=== PATIENT | male | born 1965 | race Caucasian/White ===

== ENCOUNTER 2022-09-06 07:00 | Outpatient (CLI) | payer OTHER, SELFPAY ==
--- NOTE | 2022-09-06 07:15 | MR_ITS ---
[address] [address] Phone:?[phone] Fax:?[phone] Referring Physician Information: Colton Underwood [address] [facility] [address] Phone:?[phone] Fax:?[phone] Patient:?Riaz Leon D.O.B:?1965 Sex:?Male Phone:?[phone] [facility] MRN:?[id number] Exam Date:?09/06/2022 ? EXAM: MRI OF THE LEFT SHOULDER CLINICAL INFORMATION: The patient is a 56-year-old with left shoulder pain. Evaluate for rotator cuff tear. PRIOR SURGERY: None reported. COMPARISON STUDIES: Comparison is made to prior radiographs dated 08/27/2022. TECHNICAL INFORMATION: Using a 1.5T MR scanner and a localizing shoulder surface coil: 3.0 mm?coronal obliques: PD, T2, STIR 3.0 mm?sagittal obliques: PD, T2 3.0 mm?axials: PD, T2 FINDINGS: Articular/Extraarticular collections: Effusion: Mild to moderate. Subacromial/subdeltoid: Moderate fluid is seen within the subacromial/subdeltoid bursa, in keeping with changes of bursitis. Subcoracoid: Moderate fluid is seen within the subcoracoid bursa with low signal intensity debris. The findings are in keeping with bursitis. Osseous structures: Proximal humerus: No evidence for bony injury to the proximal humerus can be seen. There is no evidence for greater tuberosity fracture. No Hill-Sachs or reverse Hill-Sachs deformity is seen. Glenoid: No acute bony abnormality of the glenoid fossa or glenoid neck can be seen. Acromioclavicular joint: Moderate changes of acromioclavicular joint arthrosis are present and can be seen on coronal series 4 image 10 and on sagittal series 8 image 15. Coracoacromial arch: Acromion morphology: Type II. No evidence for os acromiale. Acromiohumeral space: Mildly narrowed. Coracohumeral space: Mildly narrowed. Rotator cuff and deltoid: Supraspinatus: Moderate changes of supraspinatus tendinosis can be seen with intrasubstance splitting of the supraspinatus tendon fibers. No full-thickness tearing or retraction is seen. No atrophic changes of the supraspinatus muscle belly are present. Infraspinatus: Moderate infraspinatus tendinosis can be seen. There is no evidence for full or partial-thickness tearing. No atrophic changes of the infraspinatus muscle belly are identified. Teres minor: No evidence for tendinosis, tearing, or associated muscle belly atrophy. Subscapularis: Moderate subscapularis tendinosis can be seen. There is superimposed full-thickness tearing of the subscapularis tendon fibers, seen to best advantage on axial series 3 image 49 and on sagittal series 8 image 11. The area of full-thickness tearing measures 25 mm in mediolateral dimension and 23 mm in craniocaudal dimension. No atrophic changes of the subscapularis muscle belly are noted. Deltoid: No evidence for strain or tearing. Biceps tendon: Mild tendinosis and flattening of the long head of the biceps can be seen. There is no evidence for biceps rupture. No dislocation or subluxation is identified. Glenohumeral joint and labrum: Articular Cartilage: No chondral injuries along the articular surfaces of the glenohumeral articulation can be seen. No osteoarthritic changes are identified. Labrum: Degeneration, blunting, and irregularity of the glenoid labrum can be seen without definite areas of more well-defined tearing. No paralabral ganglion cyst formation is present. Capsular Soft Tissues: No definite capsular abnormalities of the glenohumeral joint are seen. No evidence for capsular tearing is present and there are no MR signs of adhesive capsulitis. CONCLUSION: 1. Moderate supraspinatus, infraspinatus, and subscapularis tendinosis. There is full-thickness tearing of the subscapularis tendon fibers as described above. 2. Glenohumeral joint effusion with subacromial/subdeltoid and subcoracoid bursitis. 3. Moderate acromioclavicular joint arthrosis with mild narrowing of the acromiohumeral space. 4. Mild tendinosis and flattening of the long head of the biceps. 5. Degeneration, blunting, and irregularity of the glenoid labrum without definite areas of more well-defined tearing. 6. No chondral injuries along the articular surfaces of the glenohumeral articulation are present. [facility] Electronically signed on 09/07/2022 6:42:00 AM by Melvin Doherty M.D.
== END 2022-09-06 07:01 | disposition home or self-care (01) ==
PROVIDERS: PCP Family Medicine; Visit Provider Physician Assistant Surgical
DX: M25.512 Pain in left shoulder (principal); S46.912A Strain of unspecified muscle, fascia and tendon at shoulder and upper arm level, left arm, initial encounter; M75.52 Bursitis of left shoulder; M25.412 Effusion, left shoulder; M19.012 Primary osteoarthritis, left shoulder
CPT/HCPCS: 73221

== ENCOUNTER 2022-09-26 08:51 | Day surgery (SDC) | payer OTHER, SELFPAY ==
[2022-09-26] VITALS (16 sets, daily range): BP systolic 102–148; BP diastolic 55–81; PULSE 65–77; RESP 16–22; TEMP 36.1–36.8; O2SAT 94–99; BMI 26.4
[2022-09-26] MEDS: LACTATED RINGERS 1000 ML 1,000 ML 100 ML IV ×2 (08:55→12:28)
--- NOTE | 2022-09-26 09:15 | SUR.PREOP ---
Patient provided home covid negative results to RN.
[2022-09-26] MEDS: SODIUM CHLORIDE 0.9 % (FLUSH) 10 ML SYRINGE IVF (09:17)
[2022-09-26] MEDS: MIDAZOLAM HCL 1 MG/ML inj IVP (09:23)
[2022-09-26] MEDS: fentaNYL 100 MCG/2 ML inj IVP (09:23)
--- NOTE | 2022-09-26 09:25 | SUR.PREOP ---
TIME?OUT:?921 PT/BHAVESH Heard/JEM Sanchez?VERIFICATION?OF?SURGICAL?SITEleftshoulder,?PROCEDURE,?AND?CONSENT OBTAINED?PRIOR?TO?INVASIVE?PROCEDURE.
--- NOTE | 2022-09-26 09:35 | W.ANESCHARGE ---
Anesthesia Charges Start Date/Time Anesthesia Start Date: 09/26/22 Anesthesia Start Time: 10:03 Stop Date/Time Anesthesia Stop Date: 09/26/22 Anesthesia Stop Time: 12:21
--- NOTE | 2022-09-26 09:35 | W.PM.NB ---
Nerve Block Nerve Block Time Seen by Provider: 09:25 Date Seen: 09/26/22 Type of block requested by surgeon for post-operative analgesia: supraclavicular Side: left Time out performed: Yes Verification of patient name: Yes Verification of date of : Yes Site marking: site marked Name of person performing procedure: Matthew Continuous monitoring Was continuous monitoring of O2 sat, B/P, campus monitor, recorded every 15 minutes?: Yes Procedure Checklist: sterile prep, needles and gloves Ultrasound guided. Images saved: Yes Medications given in 5ml increments after negative aspiration: Ropivicaine %: 0.5 mL: 20 Needle gauge: 22 Decadron (mg): 10 Precedex (mcg): 25 Patient tolerated procedure well: Yes Block Charges Block Charge (with Pro Fee): Brachial Plexus Use of Ultrasound Machine for Block: Yes- US Guidance/pain block
[2022-09-26] MEDS: EPINEPHrine 1 MG in SODIUM CHLORIDE IRRIG SOLUTION 3,000 ML 9003 MG IRRIGATION ×4 (10:10→10:35)
--- NOTE | 2022-09-26 11:06 | W.ANESCHARGE ---
Anesthesia Charges Start Date/Time Anesthesia Start Date: 09/26/22 Anesthesia Start Time: 10:03 Stop Date/Time Anesthesia Stop Date: 09/26/22 Anesthesia Stop Time: 12:21
--- NOTE | 2022-09-26 11:56 | P.ORPRC_ITS ---
Procedure Note Date of procedure: 09/26/22 Procedure: PREOPERATIVE DIAGNOSES: 1. Left shoulder rotator cuff tear. 2. Left shoulder AC degenerative disease, primary, moderate-severe 3. Left shoulder subacromial impingement syndrome. POSTOPERATIVE DIAGNOSES: 1. Left shoulder rotator cuff tear - subscapularis full-thickness broad width 2. Left shoulder AC degenerative joint disease, primary, moderate-severe 3. Left shoulder anterior labral tearing 4. Left shoulder subacromial impingement syndrome. NAME OF OPERATION: 1. Left shoulder arthroscopic rotator cuff repair. 2. Left shoulder arthroscopic distal clavicle excision 3. Left shoulder arthroscopic limited glenohumeral debridement 4. Left shoulder arthroscopic bursectomy, subacromial decompression/partial acromioplasty. SURGEON: Ashvin Hanna MD ONLINE ADVERTISING MANAGER: Robert Kidd. Of note, a skilled medical claims assistant was lanie chatman for this case to aide in patient positioning, suture manipulation, arm positioning, instrument positioning, and closure. ANESTHESIA: General plus preoperative supraclavicular block. EBL: Less than 25 mL IMPLANTS: Arthrex 4.75 mm BioComposite SwiveLock suture anchor (x2) COMPLICATIONS: None evident INDICATIONS: The patient is a pleasant, 56-year-old male who has experienced left shoulder pain that has been increasing in recent time. Physical exam and imaging were consistent with a rotator cuff tear of the subscapularis. Given their findings, as well as the weakness and pain, and inadequate response to nonoperative management, recommendation was made for surgery. FINDINGS: Exam under anesthesia revealed stable shoulder with excellent range of motion. The diagnostic arthroscopy revealed relatively healthy chondral surfaces of the glenohumeral joint. The Subscapularis tendon was torn full- thickness and wide breath with retraction that was moderate near the level of the glenoid. The long head of the biceps tendon was intact and within the bicipital groove, remarkably. The superior rotator cuff tendon was found to be torn in a high-grade partial-thickness manner the anterior portion supraspinatus. The labrum was degeneratively frayed in the anterior and superior aspects. No loose bodies were identified within the pouch or subsca pularis recess. PROCEDURE: Following a thorough discussion of risks, benefits, and alternatives, consent was obtained and the left shoulder was marked. The patient was brought to the operating room and placed supine on the operating table. Induction of anesthesia was completed after preoperative supraclavicular block was administered in preop holding. Appropriate time out was performed identifying proper patient, site, and procedure. 2 g IV Ancef was administered within 1 hour of incision preoperatively. The left upper extremity was prepped and draped in the appropriate sterile fashion using ChloraPrep prep. This was after the patient was positioned in the beach chair with their head in neutral alignment and all bony prominences well padded. The shoulder was insufflated with 20mL of normal saline via an 18g spinal needle from a posterior approach. An 11 blade skin incision allowed a blunt trochar to be inserted and diagnostic arthroscopy to be performed with the findings as noted above. An anterior portal was established with an outside in technique. This allowed the probe to be inserted and confirm the diagnostic arthroscopic findings. The shaver was then inserted and allowed debridement of the anterior and superior labrum. Following this, the upper border subscapularis was repaired after debriding the lesser tuberosity with the shaver and [place] cautery. Sub scapularis was captured in horizontal mattress fashion with a fiber tape suture twice. The inferior tails were brought to inferior anchor that was utilized with a 2nd portal, and the superior tails were brought to superior anchor of the lesser tuberosity with excellent reapproximation of the rotator cuff/subscapularis to the lesser tuberosity. Thereafter, the subacromial space was entered. Here, a complete bursectomy and partial acromioplasty/subacromial decompression was performed with a combination of radiofrequency ablator, the shaver, and a 5.5 mm bur. Additionally, distal clavicle excision was performed with the bur. 8 mm of distal clavicle was resected based on the width of our bur. Further inspection of the supraspinatus and infraspinatus rotator cuff was performed. This identified a high-grade partial-thickness tear of the supraspinatus in the far anterior aspect. The remaining supraspinatus and infraspinatus was intact and healthy. We did perform a marginal convergence suture of this longitudinal split high-grade partial-thickness tear with excellent reapproximation of the rotator cuff/supraspinatus tissue. The shoulder was placed through range of motion and found to be stable. The rotator cuff was re-probed and found to be stable. Instruments were removed. Excess fluid was drained, closure performed with 4-0 Monocryl and Steri-Strips. Dressings were applied. Sling was applied. The patient was awoken from anesthesia and transferred to the PACU in stable condition. A skilled medical claims assistant was critical for this case to aid in patient positioning, limb positioning, skill to manipulate arthroscopic instruments and camera, suture management, patient safety, and closure. PLAN: 1. Elbow, forearm, wrist and digit range of motion of operative extremity as tolerated. 2. Encouraged ice. 3. Percocet for pain as needed. 4. Sling at all times except for ROM and showering. 5. Follow up with PA visit in 1-2 weeks for wound check. Initiate physical therapy following that visit for passive range of motion. Initiate active assisted range of motion at 3-4 weeks. May do pendulums now.
--- NOTE | 2022-09-26 12:59 | SUR.PHASEI ---
Pt brought his own cryocuff and sling so should not be charged for any
== END 2022-09-26 14:39 | disposition home or self-care (01) ==
PROVIDERS: PCP Family Medicine; Visit Provider Orthopaedic Surgery Sports Medicine
PROC: (CPT 29805; principal; 2022-09-26 10:15)
DX: M75.122 Complete rotator cuff tear or rupture of left shoulder, not specified as traumatic (principal); M19.012 Primary osteoarthritis, left shoulder; M75.42 Impingement syndrome of left shoulder; S43.432A Superior glenoid labrum lesion of left shoulder, initial encounter
CPT/HCPCS: 29827; 29826; 29822; 29824; 01630; 64415; 76942; C1713; J0171; J0330; J1100; J2250; J2405; J2704; J2795; J3010; J7120

== ENCOUNTER 2023-01-08 13:00 | Outpatient (RCR) | payer OTHER, SELFPAY | END 2023-02-15 15:25 | disposition home or self-care (01) | PROVIDERS: PCP Family Medicine; Visit Provider Orthopaedic Surgery Sports Medicine | DX: M75.122 Complete rotator cuff tear or rupture of left shoulder, not specified as traumatic (principal); M75.42 Impingement syndrome of left shoulder; M19.019 Primary osteoarthritis, unspecified shoulder; Z51.89 Encounter for other specified aftercare | CPT/HCPCS: 97110; 97140; 97161 ==

== ENCOUNTER 2023-03-17 02:26 | Emergency (ER) | payer OTHER, SELFPAY ==
[2023-03-17 02:56] VITALS: BP 163/83; PULSE 60; RESP 16; TEMP 37.1; O2SAT 96; BMI 26.6
--- NOTE | 2023-03-17 03:27 | ED.GENADULT ---
HPI - General Adult General Chief complaint: Abdominal Pain Stated complaint: lower back pain Time Seen by Provider: 03/17/23 02:32 History of Present Illness HPI narrative: Pt aox4, ABCs intact. Patient c/o right flank pain that goes into his lower abdomen that started around 0100 this morning. Patient denies any urinary symptoms. No hx of abdominal surgeries. Pt also having mild nausea. sitting forward and bending at the waist improves the pain. Patient took Tylenol at 0100 57-year-old man presenting to the emergency department with complaint of right flank area pain that seems to be radiating down into the right side low abdomen to his groin beginning about 2 hours prior to arrival in the emergency department. Normal bowel movements. Is mildly nauseated. Seems to feel a bit better when he bends forward. No significant back issues. No dysuria frequency urgency. No hematuria. Review of records does show a history of an ascending aortic aneurysm. History of AVR. No personal or family history of kidney stones. Related Data Home Medications Medication Instructions Recorded Confirmed atorvastatin 40 mg tablet 40 mg PO QDAY 08/27/22 03/17/23 bupropion HCl 150 mg 24 hr tablet, 150 mg PO 08/27/22 12/18/22 extended release sertraline 100 mg tablet 100 mg PO QDAY 08/27/22 03/17/23 amlodipine 5 mg tablet 5 mg PO QDAY 08/29/22 03/17/23 aspirin 81 mg tablet,delayed 81 mg PO QDAY 08/29/22 03/17/23 release rosuvastatin 20 mg tablet 20 mg PO QDAY 08/29/22 03/17/23 acetaminophen 500 mg capsule 1,000 mg PO Q6H PRN 09/25/22 03/17/23 loratadine 10 mg tablet (Claritin) 10 mg PO DAILY 09/25/22 03/17/23 omeprazole 20 mg capsule,delayed 20 mg PO DAILY 09/25/22 03/17/23 release Previous Rx's Medication Instructions Recorded tamsulosin 0.4 mg capsule (Flomax) 0.4 mg PO DAILY #15 caps 03/17/23 Allergies Allergy/AdvReac Type Severity Reaction Status Date / Time adhesive Allergy Rash, open Verified 03/17/23 02:56 sores Penicillins Allergy Rash Verified 03/17/23 02:56 Beta-Blockers AdvReac Verified 03/17/23 02:56 (Beta-Adrenergic Bloc Review of Systems Status of ROS: Reports: 6 or more systems reviewed and unremarkable except as noted in History and below [facility] Medical History (Updated 03/17/23 @ 06:55 by Desmond Chou MD) Thrombocytopenia ?D69.6 - Thrombocytopenia, unspecified (ICD-10) Ascending aortic aneurysm ?I71.21 - Aneurysm of the ascending aorta, without rupture (ICD-10) Depression with anxiety ?F41.8 - Other specified anxiety disorders (ICD-10) Esophageal reflux ?K21.9 - Gastro-esophageal reflux disease without esophagitis (ICD-10) Surgical History Status post arthroscopy of left shoulder (09/26/22) ?Z98.890 - Other specified postprocedural states (ICD-10) H/O aortic valve replacement ?Z95.2 - Presence of prosthetic heart valve (ICD-10) History of arthroscopy of right shoulder (09/08/18) ?Z98.890 - Other specified postprocedural states (ICD-10) Social History Smoking Status: Never smoker How often do you have a drink containing alcohol: never AUDIT-C Alcohol total score: 0 Non-prescribed substance use: denies use Caffeine: Yes (1cupcoffee) Exam Narrative: Exam Narrative: A pleasant. NAD but does seem rather uncomfortable. Skin is warm and dry. Lower extremities are without edema. Extremities are well perfused. Lungs are clear. Not really able to reproduce pain to percussion of the flanks. Abdomen is soft maybe a little uncomfortable to palpation in the right abdomen but not clearly reproducible and not consistent with appendicitis/Carlito's. Heart is in a regular rate and rhythm with 2/6 systolic murmur Const: Vital Signs, click to edit/add: Vital Signs - 24 hr 03/17/23 02:56 Temperature 98.7 F Pulse Rate [Pulse Oximeter] 60 Respiratory Rate 16 Blood Pressure [Ri ght Upper Arm] 163/83 H Pulse Oximetry 96 Oxygen Delivery Me thod Room Air Documenting provider has reviewed patient's vital signs: yes Course Vital Signs Vital signs: Initial Vital Signs Temperature 98.7 F 03/17/23 02:56 Temperature Source Temporal Artery Scan 03/17/23 02:56 Pulse Rate 60 03/17/23 02:56 Respiratory Rate 16 03/17/23 02:56 Blood Pressure 163/83 H 03/17/23 02:56 Blood Pressure Mean 109 H 03/17/23 02:56 Pulse Oximetry 96 03/17/23 02:56 Oxygen Delivery Method Room Air 03/17/23 02:56 Vital Signs Temperature 98.7 F 03/17/23 02:56 Pulse Rate 60 03/17/23 02:56 Respiratory Rate 16 03/17/23 02:56 Blood Pressure 163/83 H 03/17/23 02:56 Pulse Oximetry 96 03/17/23 02:56 Oxygen Delivery Method Room Air 03/17/23 02:56 Temperature 98.7 F 03/17/23 02:56 Pulse Rate 60 03/17/23 02:56 Respiratory Rate 16 03/17/23 02:56 Blood Pressure 163/83 H 03/17/23 02:56 Pulse Oximetry 96 03/17/23 02:56 Oxygen Delivery Method Room Air 03/17/23 02:56 Medical Decision Making MDM Narrative Medical decision making narrative: Differential includes vascular dissection, mesenteric adenitis, urinary tract infection, ureteral stone and colic. Does not appear to be constipated your demonstrating any enteritis picture or colitis picture. Not reproducible in the way that one would think that there is a back/musculoskeletal concerned. Gallbladder disease perhaps but absent Burr's. Appendicitis also in differential but less likely. Given his description of location of pain and course through the abdomen I would suspect ureteral stone and colic is leading in considerations. IV will be established. Given normal saline IV hydration, ketorolac and morphine and Zofran. Pending labs but would anticipate CT scan Overall improved with treatments as above. CT abdomen pelvis by my read confirming a large stone at the ureteropelvic junction. FINDINGS: LUNG BASES: The lung bases as visualized appear normal.Sternotomy and valve repair. LIVER/BILIARY SYSTEM:The liver is normal in size and configuration. There is no focal mass and there is no intra- or extra hepatic biliary ductal dilatation.Steatosis. Normal appearing gallbladder ADRENALS: Normal KIDNEYS, URETERS and BLADDER:No definite intrarenal calculi. A few tiny low-density lesions are noted that are too small to characterize but likely cysts. Significant right-sided obstructive uropathy. This is due to a 6.5 millimeter calculus at the right ureteropelvic junction SPLEEN:The bladder appears normal PANCREAS: Appears normal. RETROPERITONEUM and MESENTERY: There is no mass, adenopathy or aortic aneurysm. GASTROINTESTINAL SYSTEM: There is no evidence of diverticulitis, colitis, mechanical obstruction, or appendicitis. The small bowel as visualized appears normal.Scattered diverticulosis PELVIS: No mass, adenopathy or free fluid. OSSEOUS STRUCTURES and ABDOMINAL WALL: There is an age-appropriate appearance of the osseous structures.No significant abdominal wall defect. OTHER: No free fluid or free air. IMPRESSION: Right-sided obstructive uropathy due to a 6.5 millimeter calcified calculus at the right ureteropelvic junction. No intrarenal calculi identified. Given size of stone and location I did discuss with [facility] for follow-up/more urgent intervention. Spoke with Dr. Haddad. We have managed to control Mr. Leon's pain. I would anticipate intervention in the next few days. See patient discharge plan Medical Records Medical records reviewed: Yes I reviewed the patient's medical records Lab Data Lab results reviewed: Yes I reviewed the patient's lab results Labs: Lab Results 03/17/23 Range/Units 03:40 WBC 6.05 (4.50-11.00) K/uL RBC 4.92 (4.30-5.90) m/uL Hgb 14.9 (13.5-17.5) gm/dL Hct 45.5 (37.0-53.0) % MCV 93 (80-100) fL MCH 30 (26-34) pg MCHC 33 (32-36) gm/dL RDW Coeff of Audrey 12.7 (11.5-15.5) % Plt Count 192 (140-440) K/uL Neut % (Auto) 77.0 H (42.0-72.0) % Lymph % (Auto) 13.2 L (20-44) % Larimer % (Auto) 7.4 (0.0-11.0) % Eos % (Auto) 1.7 (0.0-7.0) % Baso % (Auto) 0.5 (0.0-3.0) % Neut # (Auto) 4.70 (1.7-7.0) K/uL Lymph # (Auto) 0.80 L (0.90-2.90) K/uL [place] # (Auto) 0.40 (0.00-0.90) K/UL Eos # (Auto) 0.10 (0.00-0.50) K/uL Baso # (Auto) 0.03 (0.00-0.30) K/uL Abs Immat Gran (auto) 0.01 (0.00-0.30) K/uL Imm/Tot Granulo (auto) 0.2 % D-Dimer Quant (PE/DVT) 0.39 (0.00-0.50) ug/ml Sodium 141 (135-149) mmol/L Potassium 4.5 (3.6-5.1) mmol/L Chloride 106 (96-114) mmol/L Carbon Dioxide 28 (20-32) mmol/L Anion Gap 7 (7-15) mEq/L BUN 21 (7-30) mg/dL Creatinine 0.9 (0.5-1.5) mg/dL Estimated Creat Clear 85.50 Estimated GFR 98 ml/min Glucose 124 H (60-115) mg/dL Calcium 8.7 (8.4-10.6) mg/dL Total Bilirubin 0.8 (0.1-1.5) mg/dL Direct Bilirubin 0.0 (0.0-0.5) mg/dL AST 29 (12-35) U/L ALT 26 (4-50) U/L Alkaline Phosphatase 84 (40-150) U/L Total Protein 7.0 (6.0-8.3) g/dL Albumin 4.3 (3.3-5.0) g/dL Discharge Plan Discharge Clinical Impression: Obstructive uropathy, Right ureteral calculus Patient Disposition: Home w/ Parent or Adult Condition: Improved Additional Instructions: Focus on hydration generally. Tomorrow morning I would like you to call to [facility] phone number [phone] or [phone]; the latter is the office gas truck driver. Request to be seen by or BOB and that we spoke with Dr. Haddad today and are recommended for intervention for an obstructive uropathy, a proximal ureteral stone. [facility] and [facility] should have copies of the CT images that were done here today. Otherwise return/be seen for uncontrolled pain, fever, repeated vomiting. Consider straining your urine over this next week. Can take up to 800 mg of ibuprofen per dose for pain. Otherwise Percocet also prescribed from [facility]. Flomax prescribed which can help with spasm. Zofran for nausea from [facility]. Prescriptions: New tamsulosin [Flomax] 0.4 mg capsule 0.4 mg PO DAILY Qty: 15 0RF No Action bupropion HCl 150 mg tablet extended release 24 hr 150 mg PO atorvastatin 40 mg tablet 40 mg PO QDAY sertraline 100 mg tablet 100 mg PO QDAY aspirin 81 mg tablet,delayed release (DR/EC) 81 mg PO QDAY rosuvastatin 20 mg tablet 20 mg PO QDAY amlodipine 5 mg tablet 5 mg PO QDAY acetaminophen 500 mg capsule 1,000 mg PO Q6H PRN loratadine [Claritin] 10 mg tablet 10 mg PO DAILY omeprazole 20 mg capsule,delayed release(DR/EC) 20 mg PO DAILY Follow Up/Referrals: Aristeo Morton MD [Primary Care Provider] - Stand Alone Forms: [employer] Info Instructions
--- NOTE | 2023-03-17 03:31 | CRLHL7_ITS ---
For Patients: As a result of the Century Cures Act, medical imaging exams and procedure reports are released immediately into your electronic medical record. You may view this report before your referring provider. If you have questions, please contact your health care provider. INDICATION: Pain COMPARISON: None TECHNIQUE: CT examination of the abdomen and pelvis was performed following the uneventful intravenous administration of 83 cc of Isovue 370. Thin section axial images were obtained from the lung bases through the pubic symphysis. Oral contrast was not administered. Please note that all CT scans at this facility use dose modulation, iterative reconstruction, and/or weight-based dosing when appropriate to reduce radiation dose to as low as reasonably achievable. FINDINGS: LUNG BASES: The lung bases as visualized appear normal.Sternotomy and valve repair. LIVER/BILIARY SYSTEM:The liver is normal in size and configuration. There is no focal mass and there is no intra- or extra hepatic biliary ductal dilatation.Steatosis. Normal appearing gallbladder ADRENALS: Normal KIDNEYS, URETERS and BLADDER:No definite intrarenal calculi. A few tiny low-density lesions are noted that are too small to characterize but likely cysts. Significant right-sided obstructive uropathy. This is due to a 6.5 millimeter calculus at the right ureteropelvic junction SPLEEN:The bladder appears normal PANCREAS: Appears normal. RETROPERITONEUM and MESENTERY: There is no mass, adenopathy or aortic aneurysm. GASTROINTESTINAL SYSTEM: There is no evidence of diverticulitis, colitis, mechanical obstruction, or appendicitis. The small bowel as visualized appears normal.Scattered diverticulosis PELVIS: No mass, adenopathy or free fluid. OSSEOUS STRUCTURES and ABDOMINAL WALL: There is an age-appropriate appearance of the osseous structures.No significant abdominal wall defect. OTHER: No free fluid or free air. IMPRESSION: Right-sided obstructive uropathy due to a 6.5 millimeter calcified calculus at the right ureteropelvic junction. No intrarenal calculi identified. Please note that all CT scans at this facility use dose modulation, iterative reconstruction, and/or weight-based dosing when appropriate to reduce radiation dose to as low as reasonably achievable. Dictated by Christian Frazier MD @ 03/17/2023 5:20:29 AM (Electronically Signed)
[2023-03-17 03:46] LABS: Basophils Absolute Auto 0.03 K/uL (0.00-0.30); Basophils Percent Auto 0.5 % (0.0-3.0); Eosinophils Percent Auto 1.7 % (0.0-7.0); Hematocrit 45.5 % (37.0-53.0); Hemoglobin* 14.9 gm/dL (13.5-17.5); Immature Granulocytes Abs Auto 0.01 K/uL (0.00-0.30); Immature Granulocytes Pct Auto 0.2 %; Lymphocytes Percent Auto 13.2 % (20-44); Mean Corpuscular HGB Conc 33 gm/dL (32-36); Mean Corpuscular Hemoglobin 30 pg (26-34); Mean Corpuscular Volume 93 fL (80-100); Monocytes Percent Auto 7.4 % (0.0-11.0); Platelet Count* 192 K/uL (140-440); RDW Coefficient of Variation % 12.7 % (11.5-15.5); Red Blood Count 4.92 m/uL (4.30-5.90); White Blood Count* 6.05 K/uL (4.50-11.00)
[2023-03-17 03:47] LABS: Slide Review Reflex No
[2023-03-17] MEDS: ONDANSETRON 2 MG/ML inj 4 MG IVP (03:49)
[2023-03-17] MEDS: KETOROLAC 30 MG/ML inj IVP (03:50)
[2023-03-17] MEDS: MORPHINE 4 MG/ML INJ IVP (03:50)
[2023-03-17] MEDS: 0.9 % SODIUM CHLORIDE 1000 ml 1,000 ML IV (03:51)
[2023-03-17 03:59] LABS: Albumin* 4.3 g/dL (3.3-5.0); Chloride* 106 mmol/L (96-114); Sodium* 141 mmol/L (135-149)
[2023-03-17 04:00] LABS: Potassium* 4.5 mmol/L (3.6-5.1)
[2023-03-17 04:02] LABS: Alkaline Phosphatase* 84 U/L (40-150); Anion Gap 7 mEq/L (7-15); Aspartate Amino Transferase* 29 U/L (12-35); Bilirubin Total* 0.8 mg/dL (0.1-1.5); Blood Urea Nitrogen* 21 mg/dL (7-30); Carbon Dioxide* 28 mmol/L (20-32); Creatinine* 0.9 mg/dL (0.5-1.5); Estimated Glomerular Filt Rate 98 ml/min; Glucose* 124 mg/dL (60-115)
[2023-03-17 04:03] LABS: Alanine Aminotransferase* 26 U/L (4-50); Calcium* 8.7 mg/dL (8.4-10.6)
[2023-03-17 04:04] LABS: D Dimer Quantitative* 0.39 ug/ml (0.00-0.50)
[2023-03-17] MEDS: TAMSULOSIN HCL 0.4 MG CAPSULE PO (05:33)
== END 2023-03-17 07:08 | disposition home or self-care (01) ==
PROVIDERS: Emergency Provider Family Medicine; PCP Family Medicine
DX: N13.9 Obstructive and reflux uropathy, unspecified (principal); N20.1 Calculus of ureter
CPT/HCPCS: 36415; 74177; 80048; 80076; 81001; 85025; 85379; 96374; 96375; 99284; 99285; A9270; J1885; J2270; J2405; J7030; Q9967